=== PATIENT | male | born 1980 | race Caucasian/White ===

== ENCOUNTER 2018-03-30 15:25 | Inpatient (IN) | payer SELFPAY ==
[~2018-03-30] VITALS: Ht 162.6 cm; Wt 74.8 kg
[2018-03-30] MEDS ORDERED: LORAZEPAM 2MG/ML CPJ IV STA (17:00)
[2018-03-30] MEDS ORDERED: SODIUM CHLORIDE 0.9% 1,000 ML IV ONE (17:00)
[2018-03-30 17:41] LABS: CHLORIDE 102 mEq/L (98-107)
[2018-03-30 17:43] LABS: BASOPHILS % 0.1 % (0.0-2.0); EOSINOPHILS % 0.1 % (0.0-5.0); HEMATOCRIT. 39.7 % (42.0-52.0); HEMOGLOBIN. 13.8 g/dL (14.0-18.0); LYMPHOCYTES % 8.8 % (20.0-50.0); MEAN CORPUSCULAR HEMOGLOBIN 30.1 pg (28.0-32.0); MEAN CORPUSCULAR VOLUME 86.5 fL (80.0-94.0); MEAN PLATELET VOLUME 9.8 fl (7.4-10.4); MONOCYTES % 8.9 % (2.0-8.0); NEUTROPHILS % 82.1 % (40.0-76.0); PLATELET 78 x1000/uL (130-400); RED CELL DISTRIBUTION WIDTH 14.1 % (11.6-14.6)
[2018-03-30 17:45] LABS: ETHANOL BLOOD < 10 mg/dL
[2018-03-30] MEDS ORDERED: KCL 20MEQ/100ML PREMIX 100 ML IV NR (18:45)
[2018-03-30 22:45] LABS: CHLORIDE 102 mEq/L (98-107)
[2018-03-30] MEDS ORDERED: SODIUM CHLORIDE 0.9% 1,000 ML IV NR (23:07)
[2018-03-30] MEDS ORDERED: POTASSIUM BICARB/CIT ACID 25 MEQ TABLET.EFF PO NR (23:15)
[2018-03-30 23:21] LABS: CLARITY URINE CLEAR (CLEAR); COLOR URINE YELLOW (YELLOW); KETONES URINE 1+ (NEGATIVE); LEUKOCYTE ESTERASE URINE NEGATIVE (NEGATIVE); NITRITE URINE NEGATIVE (NEGATIVE); OCCULT BLOOD URINE TRACE (NEGATIVE); PH URINE 6.5 (4.5-8.0); PROTEIN URINE 1+ (NEGATIVE); SPECIFIC GRAVITY URINE 1.015 (1.005-1.030)
[2018-03-30 23:32] LABS: *AMPHETAMINES SCREEN URINE NEGATIVE (NEGATIVE); *BARBITURATES SCREEN URINE NEGATIVE (NEGATIVE); *BENZODIAZEPINES SCREEN URINE NEGATIVE (NEGATIVE); *COCAINE SCREEN URINE NEGATIVE (NEGATIVE); METHADONE URINE SCREEN NEGATIVE (NEGATIVE)
[2018-03-30 23:33] LABS: CANNABINOID URINE SCREEN NEGATIVE (NEGATIVE); OPIATES URINE SCREEN NEGATIVE (NEGATIVE); PHENCYCLIDINE URINE SCREEN NEGATIVE (NEGATIVE)
[2018-03-31] MEDS ORDERED: ONDANSETRON 4MG ODT PO ONE (05:15)
[2018-03-31] MEDS ORDERED: LORAZEPAM 1MG TABLET PO NR (05:15)
[2018-03-31] MEDS ORDERED: NITROFURANTOIN 100MG M/M CAPSULE PO NR (06:00)
[2018-03-31] MEDS ORDERED: POTASSIUM CHLORIDE 20MEQ TABLET SR PO ONE (07:45)
[2018-03-31] MEDS ORDERED: KCL 20MEQ/100ML PREMIX 100 ML IV ONE (07:45)
[2018-03-31 08:51] LABS: CHLORIDE 106 mEq/L (98-107)
[2018-03-31] MEDS ORDERED: PANTOPRAZOLE SODIUM 40 MG/VIAL IV ONE (09:30)
[2018-03-31] MEDS ORDERED: METRONIDAZOLE 500 MG PREMIX 100 ML IV ONE (09:30)
[2018-03-31] MEDS ORDERED: GUAIFENESIN 200MG/10ML SUGAR FREE UDC PO PRN (10:30)
[2018-03-31] MEDS ORDERED: DIPHENHYDRAMINE 50MG/ML VIAL IV PRN (10:30)
[2018-03-31] MEDS ORDERED: MAGNESIUM/ALUMINUM HYDROXIDE/SIMETHICONE 30ML UDC PO PRN (10:30)
[2018-03-31] MEDS ORDERED: NA PHOS,M-B/NA PHOS,DI-BA ENEMA 118ML PR PRN (10:30)
[2018-03-31] MEDS ORDERED: DOCUSATE SODIUM 100MG CAPSULE PO PRN (10:30)
[2018-03-31] MEDS ORDERED: ACETAMINOPHEN 325MG TABLET PO PRN (10:30)
[2018-03-31] MEDS ORDERED: IPRATROPIUM/ALBUTEROL 0.5-3(2.5)MG/3ML NEB INH PRN (10:30)
[2018-03-31] MEDS ORDERED: CLONIDINE 0.1MG TABLET PO PRN (10:30)
[2018-03-31] MEDS: DEXT 5%/0.45% NACL KCL 10MEQ/L 1,000 ML IV SCH ×2 (10:38→21:51)
[2018-03-31 14:44] VITALS: BP 137/88
[2018-03-31] MEDS: HYDROCODONE/ACETAMINOPHEN 5/325MG TABLET PO PRN ×2 (15:36→22:14)
[2018-03-31 15:42] VITALS: BP 138/88
[2018-03-31 16:21] VITALS: BP 119/73
[2018-03-31] MEDS: ONDANSETRON HCL 4MG/2ML VIAL IV PRN (18:16)
[2018-03-31 19:49] LABS: CHLORIDE 108 mEq/L (98-107)
[2018-03-31 20:00] VITALS: BP 120/80
[2018-03-31 20:44] LABS: AMMONIA 37 uMol/L (<32)
[2018-03-31 20:57] LABS: HEPATITIS B SURFACE ANTIGEN NEGATIVE
[2018-03-31 21:24] LABS: HEPATITIS B CORE AB IGM NEGATIVE
[2018-03-31 21:26] LABS: HEPATITIS A AB IGM NEGATIVE (NEGATIVE)
[2018-04-01] VITALS: BP 120/78
[2018-04-01] MEDS: HYDROMORPHONE HCL/PF 2MG/ML CPJ IV PRN ×2 (00:13→21:16)
[2018-04-01 01:00] LABS: HEMATOCRIT 36.1 % (42.0-52.0); HEMOGLOBIN 12.6 g/dL (14.0-18.0)
[2018-04-01 04:00] VITALS: BP 120/82
[2018-04-01] MEDS: DEXT 5%/0.45% NACL KCL 10MEQ/L 1,000 ML IV SCH ×2 (05:57→18:05)
[2018-04-01 07:11] LABS: PROTHROMBIN TIME 10.5 sec (9.4-11.6)
[2018-04-01 07:29] LABS: BASOPHILS % 0.2 % (0.0-2.0); EOSINOPHILS % 2.7 % (0.0-5.0); HEMATOCRIT. 37.1 % (42.0-52.0); HEMOGLOBIN. 12.9 g/dL (14.0-18.0); LYMPHOCYTES % 16.3 % (20.0-50.0); MEAN CORPUSCULAR HEMOGLOBIN 30.7 pg (28.0-32.0); MEAN CORPUSCULAR VOLUME 88.5 fL (80.0-94.0); MEAN PLATELET VOLUME 8.9 fl (7.4-10.4); MONOCYTES % 13.5 % (2.0-8.0); NEUTROPHILS % 67.3 % (40.0-76.0); PLATELET 130 x1000/uL (130-400); RED BLOOD CELL COUNT 4.19 mill/uL (4.7-6.1); RED CELL DISTRIBUTION WIDTH 14.4 % (11.6-14.6)
[2018-04-01 07:45] LABS: CHLORIDE 107 mEq/L (98-107)
[2018-04-01 08:02] VITALS: BP 109/66
[2018-04-01 08:02] LABS: HDL CHOLESTEROL 71 mg/dL (40-59)
[2018-04-01 08:07] LABS: LDL CHOLESTEROL 69 mg/dL (5-100)
[2018-04-01] MEDS ORDERED: POTASSIUM CHLORIDE INJ 40 MEQ in DEXT 5% WATER 250 ML IV SCH (09:00)
[2018-04-01] MEDS: PANTOPRAZOLE SODIUM 40 MG/VIAL IV SCH ×2 (09:26→21:17)
[2018-04-01] MEDS: LORAZEPAM 2MG/ML CPJ IV PRN ×3 (09:27→19:24)
[2018-04-01] MEDS ORDERED: PROPOFOL 200MG/20ML VIAL IV ONE ×2 (11:51→12:33)
[2018-04-01] MEDS ORDERED: LIDOCAINE HCL/PF 1% 10 MG/ML 5ML VIAL ONE (11:51)
[2018-04-01 12:00] VITALS: BP 115/89
[2018-04-01] MEDS ORDERED: FENTANYL CITRATE/PF 50MCG/ML 2ML VIAL IV PRN (12:45)
[2018-04-01] MEDS: ONDANSETRON HCL 4MG/2ML VIAL IV PRN (14:52)
[2018-04-01 16:00] VITALS: BP 132/88
[2018-04-01 18:57] LABS: HEMATOCRIT 36.3 % (42.0-52.0); HEMOGLOBIN 12.5 g/dL (14.0-18.0)
[2018-04-01 20:00] VITALS: BP 119/71
[2018-04-02] VITALS: BP 117/76
[2018-04-02] MEDS: HYDROCODONE/ACETAMINOPHEN 5/325MG TABLET PO PRN ×3 (03:21→15:40)
[2018-04-02] MEDS: DEXT 5%/0.45% NACL KCL 10MEQ/L 1,000 ML IV SCH (03:37)
[2018-04-02 04:03] VITALS: BP 124/77
[2018-04-02 06:53] LABS: HEMOGLOBIN. 12.9 g/dL (14.0-18.0); MEAN CORPUSCULAR HEMOGLOBIN 30.8 pg (28.0-32.0); MEAN CORPUSCULAR VOLUME 88.1 fL (80.0-94.0); MEAN PLATELET VOLUME 8.7 fl (7.4-10.4); PLATELET 177 x1000/uL (130-400); RED CELL DISTRIBUTION WIDTH 14.9 % (11.6-14.6)
[2018-04-02 07:41] LABS: CHLORIDE 106 mEq/L (98-107)
[2018-04-02 08:00] VITALS: BP 134/89
[2018-04-02] MEDS: PANTOPRAZOLE SODIUM 40 MG/VIAL IV SCH (09:29)
[2018-04-02] MEDS: LORAZEPAM 2MG/ML CPJ IV PRN (11:39)
[2018-04-02 12:00] VITALS: BP 126/78
[2018-04-02 12:06] LABS: PLATELET ESTIMATE NORMAL
[2018-04-02 15:21] VITALS: BP 126/78
[2018-04-02 15:40] VITALS: BP 125/81
[2018-04-04 04:14] LABS: OVA & PARASITE EXAM Final report (.)
[2018-04-04 15:11] LABS: FECAL FAT NEUTRAL Normal (.); FECAL FAT TOTAL Normal (.)
== END 2018-04-02 18:33 | disposition home or self-care (01) | DRG 241 ==
LOC: ER 15:49 → CANBEDREQ 03-31 06:26 → 5WST 03-31 09:41 → ENRESERV 03-31 12:23
PROVIDERS: ADMIT Internal Medicine; ATTEND Internal Medicine
PROC: 0DB68ZX Excision of Stomach, Via Natural or Artificial Opening Endoscopic, Diagnostic (ICD-10-PCS; principal; 2018-04-02)
PROC: 0DB98ZX Excision of Duodenum, Via Natural or Artificial Opening Endoscopic, Diagnostic (ICD-10-PCS; 2018-04-02)
DX: K29.70 Gastritis, unspecified, without bleeding (principal); R18.8 Other ascites; K76.0 Fatty (change of) liver, not elsewhere classified; D64.9 Anemia, unspecified; E88.09 Other disorders of plasma-protein metabolism, not elsewhere classified; E86.0 Dehydration; E87.6 Hypokalemia; F10.10 Alcohol abuse, uncomplicated; F14.10 Cocaine abuse, uncomplicated; F29 Unspecified psychosis not due to a substance or known physiological condition; K22.2 Esophageal obstruction; K44.9 Diaphragmatic hernia without obstruction or gangrene; K52.9 Noninfective gastroenteritis and colitis, unspecified; K57.90 Diverticulosis of intestine, part unspecified, without perforation or abscess without bleeding; N20.0 Calculus of kidney; K92.1 Melena
CPT/HCPCS: 36415; 71045; 74176; 76700; 80048; 80053; 80061; 80305; 80307; 80329; 81003; 82140; 82248; 82270; 82705; 83690; 83735; 84443; 84484; 85014; 85018; 85025; 85610; 85730; 86705; 86709; 86803; 87015; 87045; 87177; 87209; 87340; 87427; 87449; 87493; 88305; 88312; 88313; 89055; 93005; C9113; G0482; J1170; J2060; J2405; J2704; J3480; J3490; J7030; J7040; J7050; J7060; J7620; Q0162